=== PATIENT | female | born 1985 | race Caucasian/White ===

== ENCOUNTER → 2016-10-31 | Outpatient (CLI) | payer OTHER ==
[~2016-10-31] MED LIST: ACET1TAB43 PO; BENZ56AE2 TP; DOCU100C37 PO; FERR-74 PO; FERR-84 PO; IBUP-1773 PO; MAGN400O7 PO; PREN-37 PO
--- NOTE | 2016-10-31 16:37 | Diagnostic Imaging Report ---
INDICATION: OB ultrasound screening. TECHNIQUE: Multiple real-time grayscale images were obtained over the gravid uterus. COMPARISON: None. FINDINGS: There is a single live intrauterine fetus present. Fetus is currently breech and active. Amniotic fluid index appears normal. Placenta is anterior right. anatomical survey appears normal with the exception that a four-chamber heart was not demonstrated due to position. Also, the lower spine was not well visualized. Biometrical measurements are as follows: Biparietal 4.3 cm, age 19 weeks 0 days. Head circumference 16.3 cm, age 19 weeks 1 days. Abdominal circumference 14.9 cm, age 20 weeks 2 days. Femur length 2.9 cm, age 19 weeks 1 days. Sonographic estimate age: 19 weeks 3 days. Sonographic estimated date of delivery: 03-24-2017. Estimated Weight: 302 gm (+/- 44 gm). LMP percentile: 56%. heart rate: 138 beats per minute. number: 1 of 1. IMPRESSION: 1. Single live intrauterine fetus with sonographic age of 19 weeks 3 days with sonographic date of delivery of 03/24/2017. Overall measurements do correlate well with previously reported ultrasound. 2. Four-chamber heart and lower spine were not cleared on survey. Dictated by: Dictated on workstation # [id number]
== END ==
LOC: RAD 13:36
PROVIDERS: ATTEND Obstetrics & Gynecology
DX: Z34.92 Encounter for supervision of normal pregnancy, unspecified, second trimester (principal)
CPT/HCPCS: 76805

== ENCOUNTER → 2016-12-18 | Outpatient (CLI) | payer OTHER ==
--- NOTE | 2016-12-18 19:55 | Diagnostic Imaging Report ---
INDICATION: Followup four-chamber view and spine. TECHNIQUE: Multiple real-time grayscale images were obtained over the gravid uterus. COMPARISON: 10/31/2016. FINDINGS: The heart rate is 134 beats per minute. The placenta is fundal and anterior. No placenta previa. Adequate amniotic fluid is seen. The four-chamber view is not well seen again due to position. The spine, however, is better visualized and demonstrates no definite abnormality. IMPRESSION: The spine appears unremarkable. The four-chamber view is still not well seen due to position. Dictated by: Dictated on workstation # [id number]
== END ==
LOC: RAD 10:05
PROVIDERS: ATTEND Obstetrics & Gynecology
DX: Z36 Encounter for antenatal screening of mother (principal); Z3A.00 Weeks of gestation of pregnancy not specified
CPT/HCPCS: 76816

== ENCOUNTER 2017-03-11 15:34 | Outpatient (CLI) | payer OTHER ==
[~2017-03-11] VITALS: Ht 167.6 cm; Wt 78.0 kg
[2017-03-11] MEDS ORDERED: FERR-74 PO (15:39)
[2017-03-11 15:40] VITALS: BP 107/66
== END 2017-03-11 15:55 | disposition home or self-care (01) ==
LOC: PREOP 15:34
PROVIDERS: ATTEND Obstetrics & Gynecology
DX: Z01.818 Encounter for other preprocedural examination (principal); O34.63 Maternal care for abnormality of vagina, third trimester; Z3A.00 Weeks of gestation of pregnancy not specified
CPT/HCPCS: 87081

== ENCOUNTER 2017-03-18 05:12 | Inpatient (IN) | payer OTHER ==
[~2017-03-18] VITALS: Ht 167.6 cm; Wt 78.5 kg
[2017-03-18 06:43] LABS: BASOPHILS % (AUTO) 0 % (0-10); EOSINOPHILS # (AUTO) 0.3 10^3/uL (0.0-0.3); EOSINOPHILS % (AUTO) 3 % (0-10); LYMPHOCYTES # (AUTO) 1.5 X 10^3 (1.0-4.0); LYMPHOCYTES % (AUTO) 15 % (12-44); MEAN CORPUSCULAR HEMOGLOBIN 31 PG (25-34); MEAN CORPUSCULAR HGB CONC 34 G/DL (32-36); MEAN CORPUSCULAR VOLUME 91 FL (80-99); MEAN PLATELET VOLUME 11.2 FL (7.4-10.4); MONOCYTES # (AUTO) 0.8 X 10^3 (0.0-1.0); MONOCYTES % (AUTO) 8 % (0-12); NEUTROPHILS # (AUTO) 7.2 X 10^3 (1.8-7.8); NEUTROPHILS % (AUTO) 73 % (42-75); PLATELET COUNT 128 10^3/uL (130-400); RED BLOOD COUNT 3.81 10^6/uL (4.35-5.85); RED CELL DISTRIBUTION WIDTH 14.4 % (10.0-14.5); WHITE BLOOD COUNT 9.8 10^3/uL (4.3-11.0)
[2017-03-18] MEDS ORDERED: CITRIC ACID/SOB CIT (BICITRA) 30 ML UDC PO ONE (06:45)
[2017-03-18] MEDS ORDERED: FAMOTIDINE 20MG/2ML IV (PEPCID) IV ONE (06:45)
[2017-03-18] MEDS ORDERED: METOCLOPRAMIDE INJ 10 MG/2 ML (REGLAN) IV ONE (06:45)
[2017-03-18] MEDS ORDERED: CATHETER FLUSH 10 ML SYR IV PRN (06:45)
[2017-03-18] MEDS ORDERED: ceFAZolin INJECTION 1,000 MG in NS (IVPB) 50 ML IV ONE (06:45)
[2017-03-18] MEDS ORDERED: LACTATED RINGERS 1,000 ML IV SCH (06:45)
[2017-03-18 06:50] VITALS: BP 101/63
[2017-03-18] MEDS ORDERED: KETAMINE HCL 100 MG/ML 5 ML VIAL ONE (07:03)
[2017-03-18] MEDS ORDERED: fentaNYL INJECTION 100 MCG/2 ML AMP ONE (07:03)
[2017-03-18 07:25] VITALS: BP 107/66
--- NOTE | 2017-03-18 07:29 | History & Physical-OB ---
OB - Chief Complaint & HPI Date/Time Date of Admission: Date of Admission: Mar 18, 2017 at 6:08 am Time Seen by Provider: 07:10 Chief Complaint/History OB-Reason for Admission/Chief: Section Hx : 2 Hx Para: 1 Expected Date of Delivery: Mar 24, 2017 Gestational Age in Weeks: 39 Gestational Age in Days: 1 Indication for : other (history of previous 4th degree laceration) Admission Nurse Assessment Rev: Yes History of Labs A pos Antibody neg RI RPR NR HBsAg NR HIV NR GC neg GBS neg Allergies and Home Medications Allergies Coded Allergies: No Known Drug Allergies (Unverified , 03/18/17) Home Medications Ferrous Sulfate 325 Mg Tablet, 325 MG PO DAILY, (Reported) Vit/Iron Fumarate/FA 1 Each Tablet, 1 EACH PO DAILY, (Reported) OB - History Hx of Present Care: Yes Ultrasounds: Normal mid trimester US Obstetrical Complications: None Medical Complications: None Delivery History Hx Blood Disorders: No Adverse Rxn to Tranfusion: No Patient Past Medical History none Social History/Family History HIV/AIDS: No Recent Infectious Disease Expo: No Sexually Transmitted Disease: No Alcohol Use: Denies Use Recreational Drug Use: No Immunizations Hepatitis A: Yes Hepatitis B: Yes Tetanus Booster (TDap): Less than 5yrs OB - Admission Exam Physical Exam Date Seen by Provider: Mar 18, 2017 Time Seen by Provider: 07:10 HEENT: NCAT Heart: Rhythm Normal Lungs: Clear Abdomen: Gravid Extremities: Normal Reflexes: Normal Heart Rate: 130's Accelerations: Accelerations Present Decelerations: No Decelerations Short Term Variability: Present Manhole Stripper Variability: Average (6-25) Contractions on Admission: >10 Minutes Apart Intensity: Mild Labs Laboratory Tests Test 03/18/17 06:25 Range/Units White Blood Count 9.8 4.3-11.0 10^3/uL Red Blood Count 3.81 L 4.35-5.85 10^6/uL Hemoglobin 11.7 11.5-16.0 G/DL Hematocrit 35 35-52 % Mean Corpuscular Volume 91 80-99 FL Mean Corpuscular Hemoglobin 31 25-34 PG Mean Corpuscular Hemoglobin Concent 34 32-36 G/DL Red Cell Distribution Width 14.4 10.0-14.5 % Platelet Count 128 L 130-400 10^3/uL Mean Platelet Volume 11.2 H 7.4-10.4 FL Neutrophils (%) (Auto) 73 42-75 % Lymphocytes (%) (Auto) 15 12-44 % Monocytes (%) (Auto) 8 0-12 % Eosinophils (%) (Auto) 3 0-10 % Basophils (%) (Auto) 0 0-10 % Neutrophils # (Auto) 7.2 1.8-7.8 X 10^3 Lymphocytes # (Auto) 1.5 1.0-4.0 X 10^3 Monocytes # (Auto) 0.8 0.0-1.0 X 10^3 Eosinophils # (Auto) 0.3 0.0-0.3 10^3/uL Basophils # (Auto) 0.0 0.0-0.1 10^3/uL OB - Assessment/Plan/Diagnosis Assessment Assessment: section Plan Plan: Section Other Plan This patient was extensively counseled in the office pertaining to trial of labor and risk of reinjury of fourth degree laceration and potential recurrence of fourth degree laceration. We also discussed via passing vaginal delivery to avoid laceration and proceeding with . After the risk and benefit of both methods were extensively discussed the patient and her decided that they would prefer to go with delivery. Risk of was once again reviewed with the patient extensively, after all of her questions were answered she was scheduled for 39 weeks and consent was obtained this morning. Discharge Diagnosis Diagnosis: 31 yo @ 39.1 weeks History of previous 4th degree laceration GBS neg SHAQUILLE STOLL DO Mar 18, 2017 7:28 am
[2017-03-18] MEDS ORDERED: OXYTOCIN/NORMAL SALINE 500 ML IV SCH (07:35)
--- NOTE | 2017-03-18 07:37 | Discharge Inst-Women's Service ---
Discharge Inst-Women's Serv Depart Medication/Instructions New, Converted or Re-Newed RX: RX on Chart Consults/Follow Up Additional Follow Up: Yes Orders/Referrals Dr. Floyd in 7-10 days and in 6 weeks Activity Activity: Activity as Tolerated Driving Instructions: No Driving for 1 Week NO SMOKING: NO SMOKING Nothing Inside Vagina: No Douching, No [place], No Tampons Diet Discharge Diet: No Restrictions Symptoms to Report to : Bleeding Excessive, Pain Increased, Fever Over 101 Degrees F, Vaginal Bleeding Increase, Questions/Concerns For Any Problems or Questions: Contact Your Physician Skin/Wound Care Infection Signs and Symptoms: Increased Redness, Foul Odor of Wound, Increased Drainage, Skin Itchy or Has a Rash, Increased Swelling, Temperature Above 101 F Operative Area Clean and Dry: Keep Incision Clean/Dry Stitches/Joey/Dermabond: Dermabond, Care of Stitches Bathing Instructions: SHAQUILLE Lyles DO Mar 18, 2017 07:37
[2017-03-18] MEDS ORDERED: HYDROmorphone (DILAUDID) 2 MG/ML VIAL IVP PRN (07:45)
[2017-03-18] MEDS ORDERED: TETANUS,DIPTH,PERTUSS P/F (BOOSTRIX) 0.5 ML VIAL IM SCH (07:45)
[2017-03-18] MEDS ORDERED: ONDANSETRON 4 MG/2 ML (SDV) Z0FRAN IVP PRN (07:45)
[2017-03-18] MEDS ORDERED: MEASLES,MUMPS,RUBELLA 1 EA INJ SC SCH (07:45)
[2017-03-18] MEDS ORDERED: OXYTOCIN/NORMAL SALINE 1,000 ML IV ONE (08:12)
[2017-03-18] MEDS ORDERED: ONDANSETRON 4 MG/2 ML (SDV) Z0FRAN ONE (08:12)
[2017-03-18] MEDS ORDERED: IBUP-1773 PO (10:00)
[2017-03-18] MEDS ORDERED: INFLUENZA TRIvalent 2017-2018 0.5 ML/45 MCG SYR IM ONE (10:00)
[2017-03-18] MEDS ORDERED: HYDR-3812 PO (10:00)
[2017-03-18] MEDS ORDERED: DOCU100C37 PO (10:00)
[2017-03-18 11:00] VITALS: BP 116/74
[2017-03-18] MEDS: HYDROcodone/APAP 5 MG/325 MG (LORTAB) TAB PO PRN ×2 (11:00→17:57)
[2017-03-18] MEDS ORDERED: CATHETER FLUSH 10 ML SYR IV SCH (14:00)
--- NOTE | 2017-03-18 15:04 | OPERATIVE REPORT ---
DATE OF SERVICE: PREOPERATIVE DIAGNOSIS: 1. A 31-year-old at 39 weeks and 1 day gestation. 2. Previous 4th degree laceration. POSTOPERATIVE DIAGNOSIS: 1. A 31-year-old at 39 weeks and 1 day gestation. 2. Previous 4th degree laceration. PROCEDURE: Primary low transverse section. SURGEON: Dr. Jakub Stoll. ANESTHESIA: Spinal. EBL: 600 mL. URINE OUTPUT: 300 mL clear. PROCEDURE FLUIDS: 1500 mL of lactated Ringer's solution. FINDINGS: A live female weighing 8 pounds 3 ounces, Apgars of 8 and 9, grossly normal appearing uterus, bilateral fallopian tubes, and ovaries. SPECIMEN SENT: None. INDICATIONS FOR PROCEDURE: This 31-year-old female is a patient who had sought care both with her 1st and 2nd with myself. Her 1st was uncomplicated except with delivery she had an extensive laceration involving the rectal sphincter and rectal mucosa. She had a delayed and prolonged recovery from this and had some issues with incontinence after the repair from this. It was a long course but the patient did end up recovering from this and achieved once again and the 2nd I did give the patient the option of proceeding with primary due to the complication of the 1st . Risks of both were discussed in detail. Risk of reinjury of the 4th degree laceration versus the risk of a . After everything was discussed with her and her , they agreed and wished to proceed with primary section. After all the patient's questions were answered and the details pertaining to the risk of were all covered, she was scheduled for 39 weeks. The consent was obtained in the preoperative area and the patient taken to the operating room. OPERATIVE REPORT IN DETAIL: Went to the operating room. Spinal analgesia was found to be adequate. She was placed in the supine position with a leftward tilt, prepped and draped in normal sterile fashion. Anesthesia was tested and a timeout is performed. A Pfannenstiel skin incision was made with a knife and carried down to the underlying fascia using Bovie cautery. A fascial incision is extended laterally using Bovie cautery. The superior aspect of the fascial incision was then grasped with Jorje clamps, tented upward and then dissected off the underlying rectal muscles. The inferior aspect of the facial incision was then grasped with Jorje clamps, tended upwards and dissected off the underlying rectus muscles. The rectus muscles were then dissected down the midline using Ramirez scissors. The peritoneum was identified and entered bluntly and extended using blunt traction. The lower uterine segment is identified and found to be thinned out. I placed an Guillermo liver retractor into the peritoneal incision which offers excellent lateral and sidewall retraction. I make an incision through the vesicouterine peritoneum and bluntly dissect the vesicouterine peritoneum off the lower uterine segment, creating a bladder flap. I then proceeded with my myotomy until the membranes are visualized. I extend the uterine incision laterally and superiorly using bandage scissors. Amniotomy is performed using an Allis clamp. Clear fluid is noted at time of rupture. The was found in the vertex presentation. With gentle fundal pressure the infant's head is delivered through the incision where it was bulb suctioned both nares and oropharynx. Anterior and posterior shoulders are delivered and the infant is then brought off the operative field where the cord was doubly clamped and cut and the is handed off to the nurses in attendance. Cord blood was collected, 3-vessel cord was intact. The fundus is delivered spontaneously thereafter. IV Pitocin is initiated to facilitate uterine contraction. The uterine fundus became firmer upon uterine massage. The uterus is exteriorized and cleared of all endometrial clots and debris. I then closed the uterine incision using 0 Vicryl suture in a running locked fashion. A 2nd layer of the imbricated 0 Monocryl was placed. Excellent hemostasis is noted after doing so. I then placed the uterus back within the pelvis and copiously irrigated the pelvis using normal saline. Once again, no active bleeding is noted from any of my dissection planes. I then placed Interceed antiadhesive over my low transverse incision. I then proceed with closing the peritoneum using 3-0 Vicryl suture in a running fashion. The rectus muscles were reapproximated using 3-0 Vicryl suture in an interrupted fashion. The fascia was reapproximated using 0 Vicryl suture in a running fashion. The subcutaneous tissues were reapproximated using 3-0 plain in a running interrupted subcutaneous stitch, and the skin was reapproximated using 4-0 Monocryl and a running subcuticular Dermabond was applied to the incision and sterile dressing is adhesed with white tape. The patient tolerated the procedure well and was sent to the recovery room in stable condition. Lap and sponge counts were correct at the end of the procedure. Instrument counts correct 1 gram of Ancef given preoperatively for infection prophylaxis. Job ID: [id number] DocumentID: [id number] Dictated Date: 03/18/2017 08:33:11 Neon Sign Maker Date: 03/18/2017 15:03:36 Dictated By: JAKUB STOLL DO
[2017-03-18 15:20] VITALS: BP 120/75
[2017-03-18] MEDS: CATHETER FLUSH 10 ML SYR IV SCH (15:20)
[2017-03-18] MEDS: KETOROLAC 30 MG/ML VIAL IVP SCH ×2 (15:20→21:30)
[2017-03-18] MEDS: DOCUSATE SODIUM 100 MG (COLACE) CAP PO SCH ×2 (15:20→21:30)
[2017-03-18 20:25] VITALS: BP 122/67
[2017-03-19] VITALS: BP 104/56
[2017-03-19] MEDS: KETOROLAC 30 MG/ML VIAL IVP SCH (02:50)
[2017-03-19 04:00] VITALS: BP 103/54
[2017-03-19 05:11] LABS: BASOPHILS % (AUTO) 0 % (0-10); EOSINOPHILS # (AUTO) 0.3 10^3/uL (0.0-0.3); EOSINOPHILS % (AUTO) 2 % (0-10); LYMPHOCYTES # (AUTO) 1.1 X 10^3 (1.0-4.0); LYMPHOCYTES % (AUTO) 10 % (12-44); MEAN CORPUSCULAR HEMOGLOBIN 31 PG (25-34); MEAN CORPUSCULAR HGB CONC 34 G/DL (32-36); MEAN CORPUSCULAR VOLUME 92 FL (80-99); MEAN PLATELET VOLUME 11.2 FL (7.4-10.4); MONOCYTES # (AUTO) 0.8 X 10^3 (0.0-1.0); MONOCYTES % (AUTO) 8 % (0-12); NEUTROPHILS # (AUTO) 8.7 X 10^3 (1.8-7.8); NEUTROPHILS % (AUTO) 80 % (42-75); PLATELET COUNT 122 10^3/uL (130-400); RED BLOOD COUNT 3.57 10^6/uL (4.35-5.85); RED CELL DISTRIBUTION WIDTH 14.5 % (10.0-14.5); WHITE BLOOD COUNT 10.9 10^3/uL (4.3-11.0)
[2017-03-19] MEDS: HYDROcodone/APAP 5 MG/325 MG (LORTAB) TAB PO PRN ×4 (06:05→21:59)
[2017-03-19 07:42] VITALS: BP 99/62
[2017-03-19] MEDS: IBUPROFEN 600 MG (MOTRIN) TAB PO SCH ×2 (08:54→17:35)
[2017-03-19] MEDS: DOCUSATE SODIUM 100 MG (COLACE) CAP PO SCH ×2 (08:54→21:59)
--- NOTE | 2017-03-19 09:11 | Progress Note-Standard ---
Standard Progress Note Progress Notes/Assess & Plan Date Seen by Provider: Mar 19, 2017 Time Seen by Provider: 07:10 Progress/Assessment & Plan Patient doing well POD 1 PLTCS. Reports good pain control. Ambulating and voiding freely. Tolerating regular diet. Vital Sign - Last 24 Hours 03/18/17 03/18/17 03/18/17 03/19/17 11:00 15:20 20:25 00:00 Temp 97.6 98.1 98.2 97.4 Pulse 83 68 72 71 Resp 18 18 18 19 B/P (MAP) 116/74 120/75 122/67 104/56 Pulse Ox 100 100 100 98 O2 Delivery Room Air Room Air Room Air Room Air 03/19/17 03/19/17 04:00 07:42 Temp 99.1 Pulse 68 69 Resp 18 18 B/P (MAP) 103/54 99/62 Pulse Ox 98 97 O2 Delivery Room Air Room Air Incision: c/d/i Laboratory Tests Test 03/19/17 04:30 Range/Units White Blood Count 10.9 4.3-11.0 10^3/uL Red Blood Count 3.57 L 4.35-5.85 10^6/uL Hemoglobin 11.0 L 11.5-16.0 G/DL Hematocrit 33 L 35-52 % Mean Corpuscular Volume 92 80-99 FL Mean Corpuscular Hemoglobin 31 25-34 PG Mean Corpuscular Hemoglobin Concent 34 32-36 G/DL Red Cell Distribution Width 14.5 10.0-14.5 % Platelet Count 122 L 130-400 10^3/uL Mean Platelet Volume 11.2 H 7.4-10.4 FL Neutrophils (%) (Auto) 80 H 42-75 % Lymphocytes (%) (Auto) 10 L 12-44 % Monocytes (%) (Auto) 8 0-12 % Eosinophils (%) (Auto) 2 0-10 % Basophils (%) (Auto) 0 0-10 % Neutrophils # (Auto) 8.7 H 1.8-7.8 X 10^3 Lymphocytes # (Auto) 1.1 1.0-4.0 X 10^3 Monocytes # (Auto) 0.8 0.0-1.0 X 10^3 Eosinophils # (Auto) 0.3 0.0-0.3 10^3/uL Basophils # (Auto) 0.0 0.0-0.1 10^3/uL Diagnosis: POD 1 PLTCS P: Continue routine PO care Anticipate dc tomorrow SHAQUILLE STOLL DO Mar 19, 2017 9:11 am
[2017-03-19 11:55] VITALS: BP 96/61
--- NOTE | 2017-03-19 14:28 | Anesthesia-Regional Post-Op ---
Regional Patient Condition Mental Status: Alert, Oriented x3 Circulation: Same as Pre-Op Headache: Absent Sensation: Full Recovery Motor Block: Absent Post Op Complications Complications None Follow Up Care/Instructions Patient Instructions None needed. Anesthesia/Patient Condition Patient is doing well, no complaints, stable vital signs, no apparent adverse anesthesia problems. VINCE PARK DO Mar 19, 2017 14:28
[2017-03-19 17:35] VITALS: BP 117/65
[2017-03-19 21:50] VITALS: BP 104/58
[2017-03-19] MEDS: CATHETER FLUSH 10 ML SYR IV SCH (22:00)
[2017-03-20 00:05] VITALS: BP 106/56
[2017-03-20] MEDS: IBUPROFEN 600 MG (MOTRIN) TAB PO SCH ×3 (00:07→12:41)
[2017-03-20] MEDS: CATHETER FLUSH 10 ML SYR IV SCH (05:28)
--- NOTE | 2017-03-20 08:36 | Progress Note-Standard ---
Standard Progress Note Progress Notes/Assess & Plan Date Seen by Provider: Mar 20, 2017 Time Seen by Provider: 08:40 Progress/Assessment & Plan Vital Sign - Last 12Hours 03/19/17 03/20/17 21:50 00:05 Temp 98.0 98.0 Pulse 79 80 Resp 16 16 B/P (MAP) 104/58 106/56 Pulse Ox 98 97 O2 Delivery Room Air Room Air LOYDA BREWER DO Mar 20, 2017 08:36
[2017-03-20 09:10] VITALS: BP 111/63
[2017-03-20] MEDS: DOCUSATE SODIUM 100 MG (COLACE) CAP PO SCH (09:10)
== END 2017-03-20 13:15 | disposition home or self-care (01) | DRG 766 ==
LOC: LDRP 06:08 → 3RD 03-19 09:20
PROVIDERS: ADMIT Obstetrics & Gynecology; ATTEND Obstetrics & Gynecology
PROC: 3E0P05Z Introduction of Adhesion Barrier into Female Reproductive, Open Approach (ICD-10-PCS; 2017-03-18)
PROC: 10D00Z1 Extraction of Products of Conception, Low, Open Approach (ICD-10-PCS; principal; 2017-03-18 07:50)
DX: O34.63 Maternal care for abnormality of vagina, third trimester (principal); Z3A.39 39 weeks gestation of pregnancy; Z37.0 Single live birth; Z23 Encounter for immunization
CPT/HCPCS: 36415; 85025; 86850; 86900; 86901; 90715; 94664

== ENCOUNTER → 2023-03-23 | Outpatient (CLI) | payer BC ==
[~2023-03-23] MED LIST changes: +ACET-11 PO; -ACET1TAB43 PO; +ACHD5005 PO; -FERR-74 PO; +FERR325T18 PO
--- NOTE | 2023-03-23 17:34 | Diagnostic Imaging Report ---
PROCEDURE: Pelvic complete, transabdominal and transvaginal sonogram. Limited pelvic doppler. TECHNIQUE: Multiple real-time grayscale images were obtained of the pelvis in various projections transabdominally and transvaginally. Limited pelvic duplex images were obtained. HISTORY: Abnormal uterine bleeding COMPARISON: None available. FINDINGS: Uterus: The uterus is anteverted and measures 8.4 x 5.4 x 6.5 cm. The myometrium is homogeneous without fibroids. Endometrium: The endometrium is normal in thickness and measures 1.4 cm. There is no fluid within the endometrial cavity. Adnexa: Both ovaries have a normal physiologic appearance. The right ovary measures 3.4 x 2.3 x 2.9 cm and the left ovary measures 3.4 x 2.2 x 5.6 cm. Duplex images reveal normal vascular flow to both ovaries. Other: There is no free fluid within the pelvis. IMPRESSION: 1. Unremarkable pelvic ultrasound. Dictated by: Dictated on workstation # [id number]
== END ==
LOC: RAD 13:06
PROVIDERS: ATTEND Nurse Practitioner Women's Health
DX: N93.9 Abnormal uterine and vaginal bleeding, unspecified (principal)
CPT/HCPCS: 76830; 76856